=== PATIENT | female | born 1985 | race Caucasian/White ===

== ENCOUNTER → 2020-01-06 14:55 | Outpatient (CLI) | payer OTHER, SELFPAY ==
[2020-01-07 14:44] LABS: COVID19 Sendout Not Detected (Not Detect)
== END ==
PROVIDERS: Visit Provider Physician Assistant
DX: Z11.59 Encounter for screening for other viral diseases (principal)
CPT/HCPCS: 87635

== ENCOUNTER 2020-01-09 10:09 | Day surgery (SDC) | payer OTHER, SELFPAY ==
[2020-01-09 10:26] VITALS: BP 113/69; PULSE 87; RESP 16; TEMP 36.3; O2SAT 100; BMI 34.2
[2020-01-09] MEDS: SODIUM CHLORIDE 0.9% 1,000 ML 42 ML IV (10:42)
--- NOTE | 2020-01-09 11:44 | PM.HP.1 ---
History of Present Illness History of Present Illness Date Patient Seen: 01/09/20 Chief complaint: SDC Narrative: Rectal bleeding and family history of colon cancer Patient History Family & Social History Social History: household members spouse Tobacco & Substance use: Smoking Status Never smoker alcohol intake frequency a few times a month Substance Use Type does not use Meds Home Medications and Allergies Home Medications Medication Instructions Recorded Confirmed Type No Known Home Medications 01/09/20 01/09/20 History Allergies Allergy/AdvReac Type Severity Reaction Status Date / Time No Known Drug Allergies Allergy Unverified 01/06/20 14:54 Exam Vital Signs (past 8 hours): - 01/09/20 10:26 Temperature 97.4 F L Pulse Rate 87 Respiratory Rate 16 Blood Pressure 113/69 Pulse Oximetry 100 Oxygen Delivery Method Room Air Narrative Exam Narrative: Oropharynx free of lesions Chest clear to auscultation percussion Cardiac exam reveals no S3 or murmur Assessment & Plan Assessment & Plan narrative: Rectal bleeding with strong family history of colon cancer need for colonoscopy. Risks, benefits, alternatives have been explained.
--- NOTE | 2020-01-09 11:46 | PM.OP.ENDO ---
Operative Date/Time/Diagnoses Date of procedure: 01/09/20 Pre-op diagnosis: See indication and findings Procedure & Clinicians Study performed: Colonoscopy Same procedure as scheduled: Yes Indications: Rectal bleeding a strong family history of colon cancer Surgeon: Damien Henderson Procedure Notes Procedure in detail: After informed consent was obtained the patient was placed in left lateral decubitus position. The video colonoscope was introduced the rectum slowly advanced. This was easily passed the cecum. On slow withdrawal mucosa was carefully examined. Preparation was good. The scope was removed. The patient tolerated procedure well. Blood loss none Complications none Sedation Total sedation time 18 minutes Fentanyl 200 g Versed 7 mg IV titration Findings 1. Mild internal hemorrhoids 2. Otherwise negative colonoscopy to cecum Patient will not need follow-up colonoscopy for 10 years. She will remain on her bowel regimen that promotes bowel movements every 1-2 days. Her bleeding was probably from mild internal hemorrhoids and significant straining.
[2020-01-09] MEDS: MIDAZOLAM 5 MG/5 ML VIAL IV (11:56)
[2020-01-09] MEDS: fentaNYL 250 MCG/5 ML INJ IV (11:58)
[2020-01-09 12:10] VITALS: BP 100/52; PULSE 75; RESP 16; TEMP 36.2; O2SAT 99
[2020-01-09 12:15] VITALS: BP 102/57; PULSE 74; RESP 13; O2SAT 98
[2020-01-09 12:20] VITALS: BP 112/54; PULSE 77; RESP 16; O2SAT 96
[2020-01-09 12:25] VITALS: BP 107/58; PULSE 77; RESP 16; O2SAT 97
[2020-01-09 12:34] VITALS: BP 110/65; PULSE 72; RESP 12; TEMP 36.6; O2SAT 95
--- NOTE | 2020-01-09 13:03 | SUR.PHASEII ---
Pt dcd in stable condition with all her dc instructions and she verbalizes understanding.
== END 2020-01-09 13:00 | disposition home or self-care (01) ==
PROVIDERS: PCP Family Medicine; Referring Provider Internal Medicine Gastroenterology; Visit Provider Internal Medicine Gastroenterology
PROC: 0DJD8ZZ Inspection of Lower Intestinal Tract, Via Natural or Artificial Opening Endoscopic (ICD-10-PCS; CPT 45378; principal; 2020-01-09 11:00)
DX: K64.8 Other hemorrhoids (principal); Z80.0 Family history of malignant neoplasm of digestive organs
CPT/HCPCS: 45378; J2250; J3010